=== PATIENT | female | born 1945 | race Caucasian/White ===

== ENCOUNTER 2017-02-27 17:22 | Observation (INO) ==
--- NOTE | 2017-02-27 17:49 | Emergency Department Report ---
Cardiac General HPI - General Chief Complaint: Arrhythmia/Palpitations <John Lopez - 02/27/17 18:43> Stated Complaint: heart montior on went off/heart papulation <John Lopez - 02/27/17 18:43> Time Seen by Provider: 02/27/17 17:48 <John Lopez 02/27/17 18:43> - History of Present Illness HPI narrative: 71-year-old female presents with arrhythmia. Has had 2 or 3 episodes over the last month where she feels like her heart is suddenly palpitating. She saw Dr. Cervantes and had a Holter monitor placed. Today she had an episode and called. He downloaded and sent her to emergency department for evaluation. She has no current chest pain or shortness of breath. Feels like her heart is slow again. She would very much like to get out here and get home so that she couldn't get to work in the morning. She did have a cardiac catheter recently which was normal. <John Lopez 02/27/17 18:43> - Related Data Home Medications Medication Instructions Recorded Confirmed Levothyroxine Sodium 50 mcg PO QOD #0 06/07/11 02/27/17 Levothyroxine Sodium 75 mcg PO QOD #0 tab 06/26/16 02/27/17 Calcium Carb/Magnesium Oxid/D3 1 tab PO DAILY #0 06/27/16 02/27/17 [Calcium Magnesium + D Tablet] Multivitamin [One Daily] 1 each PO DAILY 02/27/17 02/27/17 <John Lopez 02/27/17 18:43> Allergies Allergy/AdvReac Type Severity Reaction Status Date / Time pseudoephedrine Allergy Unknown Verified 02/27/17 17:42 [From [facility]] <John Lopez 02/27/17 18:43> Review of Systems All systems: reviewed and negative except as stated <John Lopez 18:43> [facility] Patient Stated Medical History Cardiac Arrhythmia Yes: a-fib with RVR Clinic Medical History (Last Updated 02/14/17 @ 08:43 by Maryann Mayer MA) Fibrocystic disease of both breasts (Chronic Medical) Hypothyroidism (Chronic Medical) Osteopenia (Chronic Medical) <John Lopez 02/27/17 18:43> Surgical History: hysterectomy. bilateral mastectomy. pilonidal cyst <August, [place] 02/27/17 17:48> Family History: Family History (Last Updated 02/14/17 @ 08:45 by Maryann Mayer MA) Mother Breast cancer <John Lopez 02/27/17 18:43> - Social History Smoking status: Never smoker <August,[place] 02/27/17 17:48> Physical Exam - Limitations Limitations: no limitations <John Lopez 02/27/17 18:43> - General General appearance: alert, in no apparent distress <John Lopez 02/27/17 18:43> - Normal Exams: Chest/Respirations:: Clear all andrade, with good airflow, and symmetry bilaterally <John Lopez 02/27/17 18:43> Cardiovascular:: Regular rate and rhythm, without murmur or gallop, Pulses 2+ all extremities, capillary refill, <2 seconds all extremities <John Lopez 02/27/17 18:43> Abdomen:: Bowel sounds positive, soft, non-tender, non-distended, no hepatosplenomegaly, masses or bruits noted <John Lopez 02/27/17 18:43> Neurological:: Patient is alert, and oriented, cranial nerves, motor/sensory/ cerebellar, exams w/o gross deficits, to observation <John Lopez 18:43> Psychiatric:: Patient exhibits, appropriate attention, emotion and affect < John Lopez 02/27/17 18:43> Course Vital Signs Temperature 98.1 F 02/27/17 17:31 Pulse Rate 81 02/27/17 17:31 Respiratory Rate 16 02/27/17 17:31 Blood Pressure 136/66 02/27/17 17:31 Pulse Oximetry 96 02/27/17 17:31 Temperature 98.1 F 02/27/17 17:31 Pulse Rate 81 02/27/17 17:31 Respiratory Rate 16 02/27/17 17:31 Blood Pressure 136/66 02/27/17 17:31 Pulse Oximetry 96 02/27/17 17:31 <AugustClovis 02/27/17 17:48> Vital Signs Temperature 98.1 F 02/27/17 17:31 Pulse Rate 81 02/27/17 17:31 Respiratory Rate 16 02/27/17 17:31 Blood Pressure 136/66 02/27/17 17:31 Pulse Oximetry 96 02/27/17 17:31 Temperature 98.1 F 02/27/17 17:31 Pulse Rate 81 02/27/17 17:31 Respiratory Rate 16 02/27/17 17:31 Blood Pressure 136/66 02/27/17 17:31 Pulse Oximetry 96 02/27/17 17:31 <JessicaJohn Greenwood 02/27/17 18:43> Cardiac General - [facility] Narrative Medical decision making narrative: I spoke with Dr. Cervantes. Patient's arrhythmia was A. fib with RVR. He would like her to be evaluated and admitted to the floor on telemetry for treatment tonight with antiarrhythmic. Patient ultimately agreed that she would stay. We had the discussion that if she ignored this, she would be slowed down even more than if she stated had it treated. No symptoms at this time. <JessicaJohn Krystyna 02/27/17 18:43> - Differential Diagnosis Differential diagnosis: Likely: palpitations <JessicaJohn Greenwood 02/27/17 18:43> - Medical Records Attestation: I reviewed the patient's medical records. <JessicaJohn Greenwood 02/27 18:43> - EKG Data EKG #1 EKG attestation: Yes: I reviewed and interpreted this EKG. <AugustJoaoClovis 17:48> EKG shows normal: sinus rhythm, axis, intervals, ST-T waves <August,[place] Estrella 17:48> Voltage: decreased voltage throughout <August,[place] 02/27/17 17:48> P waves: LAE <August,[place] 02/27/17 17:48> Disposition Clinical Impression: Palpitations, Atrial fibrillation with RVR <JessicaJohn Greenwood 02/27/17 18:43> Disposition: 02 To [facility] <JessicaJohn Krystyna 02/27/17 18:43> Condition: Stable <John Lopez 02/27/17 18:43> Instructions: <John Lopez 02/27/17 18:43> Prescriptions: No Action Levothyroxine Sodium 50 mcg PO QOD #0 Levothyroxine Sodium 75 mcg PO QOD #0 tab Calcium Carb/Magnesium Oxid/D3 [Calcium Magnesium + D Tablet] 1 tab PO DAILY #0 Multivitamin [One Daily] 1 each PO DAILY <John Lopez - 02/27/17 18:43> Referrals: José Steiner DO [Primary Care Provider] - <John Lopez - 02/27 18:43> Forms: <John Lopez - 02/27/17 18:43> Time of Disposition: 18:40 <John Lopez 02/27/17 18:43> - Seen By: physician <John Lopez - 02/27/17 18:43>
[2017-02-27] MEDS: SALINE FLUSH 10ml SYRINGE IVF PRN ×2 (19:15→20:49)
[2017-02-27 20:02] VITALS: BMI 21.8
[2017-02-27] MEDS ORDERED: ACETAMINOPHEN 500 MG TABLET PO PRN (20:04)
[2017-02-27] MEDS ORDERED: ONDANSETRON 4 MG/2 ML INJECTION IVP PRN (20:05)
[2017-02-27] MEDS: NS 1,000 ML IV SCH (20:49)
[2017-02-27] MEDS: SOTALOL 80 MG TABLET PO SCH (21:38)
[2017-02-28] MEDS: SOTALOL 80 MG TABLET PO SCH (06:13)
[2017-02-28] MEDS ORDERED: POM LEVOTHYROXINE 75 MCG TABLET PO SCH (07:15)
[2017-02-28 07:32] VITALS: RESP 16
[2017-02-28] MEDS ORDERED: FLECAINIDE 100 MG TABLET PO SCH (09:30)
[2017-02-28] MEDS: CALCIUM 500 + VIT D 200 TABLET PO SCH (09:33)
[2017-02-28] MEDS: LEVOTHYROXINE 50 MCG TABLET PO SCH (09:33)
[2017-02-28] MEDS: MULTI-VITAMIN PLAIN TABLET PO SCH (09:34)
--- NOTE | 2017-02-28 09:43 | Cardiology History & Physical ---
History of Present Illness Chief complaint: palpitations HPI: Bernadette is a 71 year old female who is well known to Dr. 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 The rhythm was reviewed by Dr. Desouza and the patient reported lightheadedness so she was sent to the ED for evaluation and treatment. She denied chest pain or shortness of breath. Cardiac catheterization on 06/27/16 showed normal LV systolic function with ejection fraction of 65% and no significant coronary obstructive disease. She was admitted to observation for A. fib with RVR on telemetry for treatment with antiarrhythmic therapy. Review of Systems - Constitutional Constitutional: Absent: chills, fatigue, fever(s) - EENMT Eyes: Absent: change in vision Balance: Absent: vertigo Mouth/Throat: Absent: sore throat - Cardiovascular Cardiovascular: Present: palpitations, syncope. Absent: chest pain, dyspnea on exertion, orthopnea, edema, heart murmur Rhythm: Present: abnormal rhythm - Respiratory Respiratory: Absent: cough, dyspnea, dyspnea on exertion - Gastrointestinal Gastrointestinal: Absent: constipation, diarrhea, nausea, vomiting - Genitourinary Genitourinary: Absent: dysuria - Integumentary/Breasts Integumentary: Absent: rash - Neurological Neurological: Present: dizziness, other (lightheadedness) - Endocrine Endocrine: Present: palpitations PFSH Patient Stated Medical History Syncope Yes Cardiac Arrhythmia Yes: a-fib with RVR Shingles Yes Clinic Medical History (Last Updated 02/14/17 @ 08:43 by Maryann Mayer MA) Palpitations (Acute Medical) Atrial fibrillation with RVR (Acute Medical) Fibrocystic disease of both breasts (Chronic Medical) Hypothyroidism (Chronic Medical) Osteopenia (Chronic Medical) Surgical History: hysterectomy. bilateral mastectomy. pilonidal cyst. tonsillectomy Family History: Family History (Last Updated 02/14/17 @ 08:45 by Maryann Mayer MA) Mother Breast cancer - Social History Smoking status: Never smoker Substance use type: does not use Alcohol intake frequency: does not drink Household members: spouse Current occupational status: employed Current residence: Apartment/Private Home Medications Home Medications Medication Instructions Recorded Confirmed Type Levothyroxine Sodium 50 mcg PO QOD #0 06/07/11 02/27/17 History Levothyroxine Sodium 75 mcg PO QOD #0 tab 06/26/16 02/27/17 History Calcium Carb/Magnesium Oxid/D3 1 tab PO DAILY #0 06/27/16 02/27/17 History [Calcium Magnesium + D Tablet] Multivitamin [One Daily] 1 each PO DAILY 02/27/17 02/27/17 History Allergies Allergy/AdvReac Type Severity Reaction Status Date / Time pseudoephedrine Allergy Unknown Verified 02/27/17 17:42 [From [facility]] Exam Vital signs: Temperature 95.2 F L 02/28/17 07:30 Pulse Rate 47 L 02/28/17 07:30 Respiratory Rate 16 02/28/17 07:30 Blood Pressure 113/65 02/28/17 07:30 Pulse Oximetry 98 02/28/17 07:30 - Constitutional no acute distress, cooperative - Routine HEENT Exam Head: Present: normocephalic ENT: Present: mucous membranes moist - Routine Neck Exam Absent: JVD, carotid bruit - Routine Chest/Breast/Axilla Exam Chest wall: Absent: tenderness - Routine Respiratory Exam Present: CTA bilaterally. Absent: rales, wheezes - Routine Cardiovascular Exam Present: RRR, no murmur. Absent: JVD - Routine Abdominal Exam Present: soft, normoactive bowel sounds - Routine Extremities Exam Present: no edema - Routine Skin Exam Present: intact, dry, warm - Routine Neurological Exam Present: alert, oriented X3 - Routine Psychiatric Exam Present: normal affect, normal thought process Results 03/01/17 04:33 03/01/17 04:33 Cardiac Enzymes 02/27/17 Range/Units 19:16 AST 29 (14-36) U/L Troponin I < 0.012 (0-0.12) ng/ml CBC 02/27/17 Range/Units 19:16 WBC 5.0 (4.5-11.0) T/MM3 RBC 4.35 (4.00-5.20) M/MM3 Hgb 14.1 (12-16) GM/DL Hct 43.0 (36-46) % Plt Count 207 (130-400) T/MM3 Neut # (Auto) 2.8 (1.8-7.7) T/MM3 Lymph # (Auto) 1.7 (1-4.8) T/MM3 Meade # (Auto) 0.4 (0-0.8) T/MM3 Eos # (Auto) 0.1 (0-0.5) T/MM3 Baso # (Auto) 0.0 (0-0.2) T/MM3 Comprehensive Metabolic Panel 02/27/17 Range/Units 19:16 Sodium 143 (134-144) MEQ/L Potassium 4.5 (3.6-5) MEQ/L Chloride 104 (98-107) MEQ/L Carbon Dioxide 29 (22-30) MEQ/L BUN 25.0 H (7-17) MG/DL Creatinine 0.9 (0.7-1.2) MG/DL Glucose 103 (65-110) MG/DL Calcium 9.7 (8.4-10.2) MG/DL AST 29 (14-36) U/L ALT 36 (9-52) U/L Alkaline Phosphatase 106 (38-126) U/L Total Protein 7.3 (6.3-8.2) G/DL Albumin 4.1 (3.5-5.0) G/DL Intake and Output 02/27/17 02/28/17 02/28/17 22:59 06:59 14:59 Intake Total 600 / 600 240 / 240 Output Total 300 / 300 475 / 475 Balance -300 / -300 125 / 125 240 / 240 Intake: Oral 600 / 600 240 / 240 Output: Urine 300 / 300 475 / 475 Other: Urine Appearance Cloudy Clear Urine Color Straw Yellow Urine Odor Normal # Voids 1 Weight 125 lb 0.034 oz 124 lb 5.451 oz Patient Weight 03/01/17 06:59 Weight 124 lb 5.451 oz - Imaging and Cardiology EKG results: image reviewed EKG interpretations - Dysrhythmias Sinus rhythms and dysrhythmias: sinus rhythm - Blocks, axis, hypertrophy, ST abn Chamber hypertrophy or enlargement: right atrial enlargement or conduction defect Hospital Course This is a general summary of the patient's hospital course. For more details refer to the complete medical record. Time spent with patient: 25 - 35 minutes DVT Prophylaxis: Eliquis Assessment and Plan - Attestation Attestation Narrative: 03/02/17 13:37 Recommendation After examining the patient I agree with the above assessment. I am involved in the formulation of the patient's plan of care. - Assessment and Plan (1) Atrial fibrillation with RVR Status: Acute Currently in SR - Change previously ordered Sotalol to Flecainide - Continue to monitor cardiac telemetry for proarrhythmic effects such as torsades, check Mag - Repeat EKG tomorrow morning for QT interval - Start Eliquis for anticoagulation due to Chads of at least 2 (over 65 and female) Monitor HGB and platelet count - Assessment and Plan 02/28/17 Currently in SR - Change previously ordered Sotalol to Flecainide - Continue to monitor cardiac telemetry for proarrhythmic effects such as torsades, check Mag - Repeat EKG tomorrow morning for QT interval - Start Eliquis for anticoagulation due to Chads of at least 2 (over 65 and female) Monitor HGB and platelet count
[2017-02-28] MEDS ORDERED: FLECAINIDE 50 MG TABLET PO ONE (10:45)
[2017-02-28] MEDS: NS 1,000 ML IV SCH (11:01)
[2017-02-28] MEDS: APIXABAN 5 MG TABLET PO SCH (16:02)
[2017-02-28] MEDS: FLECAINIDE 50 MG TABLET PO SCH (20:41)
[2017-02-28] MEDS: SALINE FLUSH 10ml SYRINGE IVF PRN (20:43)
[2017-02-28] MEDS ORDERED: APIXABAN 5 MG TABLET PO SCH (21:00)
[2017-03-01] MEDS: LEVOTHYROXINE 50 MCG TABLET PO SCH (05:43)
[2017-03-01] MEDS ORDERED: LEVOTHYROXINE 75 MCG TABLET PO SCH (06:30)
[2017-03-01 07:45] VITALS: BP 127/63; TEMP 98.1; O2SAT 97
[2017-03-01] MEDS: CALCIUM 500 + VIT D 200 TABLET PO SCH (08:49)
[2017-03-01] MEDS: APIXABAN 5 MG TABLET PO SCH (08:49)
[2017-03-01] MEDS: MULTI-VITAMIN PLAIN TABLET PO SCH (08:50)
[2017-03-01] MEDS: FLECAINIDE 50 MG TABLET PO SCH (08:51)
[2017-03-01 11:16] VITALS: PULSE 52
--- NOTE | 2017-03-01 13:22 | Discharge Summary ---
<Renetta Padilla - Last Filed: 03/05/17 12:01> Discharge Information Date of admission: 02/27/17 18:41 Anticipated date of discharge: 03/01/17 Attending Physician: Aly Cervantes MD Primary care physician: José Steiner DO - Discharge Diagnosis (1) Atrial fibrillation with RVR Status: Acute Atrial fibrillation - Laboratory Labs: 03/01/17 04:33 03/01/17 04:33 Laboratory Results - last 48 hr 02/27/17 02/27/17 02/28/17 19:16 19:16 15:35 WBC 5.0 RBC 4.35 Hgb 14.1 Hct 43.0 MCV 98.9 MCH 32.4 MCHC 32.8 RDW Std Deviation 46.6 Plt Count 207 MPV 9.7 Immature Gran % (Auto) 0.0 Neut % (Auto) 55.3 Lymph % (Auto) 33.7 Chambers % (Auto) 8.0 Eos % (Auto) 2.2 Baso % (Auto) 0.8 Neut # (Auto) 2.8 Lymph # (Auto) 1.7 Chambers # (Auto) 0.4 Eos # (Auto) 0.1 Baso # (Auto) 0.0 Abs Immat Gran (auto) 0.00 Turbidity < 20 Sodium 143 Potassium 4.5 Chloride 104 Carbon Dioxide 29 Anion Gap 10 BUN 25.0 H Creatinine 0.9 GFR Calculation 61 BUN/Creatinine Ratio 28 H Glucose 103 Calculated Osmolality 279 Calcium 9.7 Magnesium 2.1 Total Bilirubin 0.30 Icterus Index < 2 AST 29 ALT 36 Alkaline Phosphatase 106 Troponin I < 0.012 Total Protein 7.3 Albumin 4.1 Globulin 3.2 Albumin/Globulin Ratio 1.3 TSH 6.48 H Specimen Hemolysis < 15 03/01/17 03/01/17 04:33 04:33 WBC 3.9 L RBC 3.74 L Hgb 11.8 L D Hct 37.7 D MCV 100.8 H MCH 31.6 MCHC 31.3 RDW Std Deviation 48.0 Plt Count 174 MPV 9.9 Immature Gran % (Auto) Neut % (Auto) Lymph % (Auto) Chambers % (Auto) Eos % (Auto) Baso % (Auto) Neut # (Auto) Lymph # (Auto) Chambers # (Auto) Eos # (Auto) Baso # (Auto) Abs Immat Gran (auto) Turbidity < 20 Sodium 142 Potassium 4.5 Chloride 108 H Carbon Dioxide 29 Anion Gap 5 BUN 20.0 H Creatinine 0.8 GFR Calculation 70 BUN/Creatinine Ratio 25 Glucose 90 Calculated Osmolality 276 Calcium 9.0 Magnesium 2.2 Total Bilirubin Icterus Index < 2 AST ALT Alkaline Phosphatase Troponin I Total Protein Albumin Globulin Albumin/Globulin Ratio TSH Specimen Hemolysis 19 History of Present Illness HPI: Bernadette is a 71 year old female who is well known to Dr. 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 The rhythm was reviewed by Dr. Desouza and the patient reported lightheadedness so she was sent to the ED for evaluation and treatment. She denied chest pain or shortness of breath. Cardiac catheterization on 06/27/16 showed normal LV systolic function with ejection fraction of 65% and no significant coronary obstructive disease. She was admitted to observation for A. fib with RVR on telemetry for treatment with antiarrhythmic therapy. Hospital Course This is a general summary of the patient's hospital course. For more details refer to the complete medical record. Hospital course: Bernadette was initially started on Sotalol for antiarrhythmic therapy which caused her to become bradycardic. She was Switched to Flecainide 50mg BID and Eliquis added for stroke prevention. Bernadette tolerated both well and she was discharged to home with Eliquis samples and discount card. Time spent with patient: 25 - 35 minutes DVT Prophylaxis: Eliquis Exam Vital signs: Temperature 98.1 F 03/01/17 07:44 Pulse Rate 52 L 03/01/17 08:00 Respiratory Rate 16 03/01/17 07:44 Blood Pressure 127/63 03/01/17 07:44 Pulse Oximetry 97 03/01/17 07:44 - Constitutional no acute distress, well nourished, cooperative - Routine HEENT Exam Head: Present: normocephalic ENT: Present: mucous membranes moist - Routine Neck Exam Absent: JVD, carotid bruit - Routine Chest/Breast/Axilla Exam Chest wall: Absent: tenderness - Routine Respiratory Exam Present: CTA bilaterally. Absent: rales, wheezes - Routine Cardiovascular Exam Present: RRR, no murmur. Absent: JVD - Routine Abdominal Exam Present: soft, normoactive bowel sounds - Routine Extremities Exam Present: no edema - Routine Skin Exam Present: intact, dry, warm - Routine Neurological Exam Present: alert, oriented X3 - Routine Psychiatric Exam Present: normal affect, normal thought process Results 03/01/17 04:33 03/01/17 04:33 CBC 03/01/17 Range/Units 04:33 WBC 3.9 L (4.5-11.0) T/MM3 RBC 3.74 L (4.00-5.20) M/MM3 Hgb 11.8 L D (12-16) GM/DL Hct 37.7 D (36-46) % Plt Count 174 (130-400) T/MM3 Comprehensive Metabolic Panel 03/01/17 Range/Units 04:33 Sodium 142 (134-144) MEQ/L Potassium 4.5 (3.6-5) MEQ/L Chloride 108 H (98-107) MEQ/L Carbon Dioxide 29 (22-30) MEQ/L BUN 20.0 H (7-17) MG/DL Creatinine 0.8 (0.7-1.2) MG/DL Glucose 90 (65-110) MG/DL Calcium 9.0 (8.4-10.2) MG/DL Intake and Output 02/28/17 03/01/17 03/01/17 22:59 06:59 14:59 Intake Total 600 / 600 340 / 340 240 / 240 Output Total 275 / 275 850 / 850 Balance 325 / 325 -510 / -510 240 / 240 Intake: Oral 600 / 600 340 / 340 240 / 240 Output: Urine 275 / 275 850 / 850 Other: Urine Appearance Clear Clear Urine Color Yellow Yellow Urine Odor Normal Normal # Voids 3 Weight 125 lb 0.034 oz Patient Weight 03/02/17 06:59 Weight 125 lb 0.034 oz - EKG Interpretation EKG: sinus rhythm (left atrial enlargement) EKG shows: bradycardia (hr 51) Discharge Plan - Med Rec/Dispo Referrals/Follow Up: Aly Cervantes MD [Physician] - 04/04/17 9:00 am [place] Instructions: A-fib (Atrial Fibrillation) (GEN) Prescriptions: New Apixaban [Eliquis] 5 mg PO BID #60 tab Flecainide [Tambocor] 50 mg PO BID #60 tab Continue Levothyroxine Sodium 50 mcg PO QOD #0 Levothyroxine Sodium 75 mcg PO QOD #0 tab Calcium Carb/Magnesium Oxid/D3 [Calcium Magnesium + D Tablet] 1 tab PO DAILY #0 Multivitamin [One Daily] 1 each PO DAILY - Disposition 01 Discharged Home, Self-Care - Dismissal Complete Discharge Instructions are:: Complete <Aly Cervantes - Last Filed: 03/06/17 07:47> Discharge Information Date of admission: 02/27/17 18:41 Attending Physician: Aly Cervantes MD Primary care physician: José Steiner DO - Discharge Diagnosis (1) Atrial fibrillation with RVR Status: Acute - Laboratory Labs: 03/01/17 04:33 03/01/17 04:33 Hospital Course This is a general summary of the patient's hospital course. For more details refer to the complete medical record. Exam Vital signs: Temperature 98.1 F 03/01/17 07:44 Pulse Rate 52 L 03/01/17 08:00 Respiratory Rate 16 03/01/17 07:44 Blood Pressure 127/63 03/01/17 07:44 Pulse Oximetry 97 03/01/17 07:44 Results 03/01/17 04:33 03/01/17 04:33 Attestation Narriative - Attestation Attestation Narrative: 03/06/17 07:47 Recommendation After examining the patient I agree with the above assessment. I am involved in the formulation of the patient's plan of care.
== END 2017-03-01 11:55 | disposition home or self-care (01) ==
LOC: ED 17:22 → MED 17:22
PROVIDERS: ADMIT Internal Medicine Cardiovascular Disease; ATTEND Internal Medicine Cardiovascular Disease